=== PATIENT | female | born 1965 | race Caucasian/White ===

== ENCOUNTER 2018-10-11 12:50 | Inpatient (IN) | payer MEDICAID, OTHER ==
--- NOTE | 2018-10-11 13:00 | EDPHY ---
H & P Stated Complaint: manic biploar off meds Time Seen by Provider: 10/11/18 12:59 HPI/ROS: HPI: This is a 53-year-old female who presents with Chief Complaint: Manic, off medications Location: Psychiatric Quality: Marlin Duration: Several weeks Signs and Symptoms: no auditory hallucinations, no visual hallucinations, no suicidal ideation with a plan, no homicidal ideation, no paranoia Timing: Acute on chronic Severity: Severe Context: Patient presents accompanied by daughter and son with concerns of manic episode for the last several weeks. Patient has a history of bipolar disorder, noncompliant with Seroquel and carbamazepine. Daughter reports that she when out of town from September 27 to and during that time her mother started drinking alcohol and using marijuana which is a trigger for her. She reports that she has not been taking her medication regularly since that time. In December she moved from [place] to [place] to be closer to her son and daughter. She has had several inpatient psychiatric admission in [place]. Family reports that she is very delusional, manic. She is followed outpatient with psychiatry, [facility], bipolar disorder group. Modifying Factors: None Comment: ROS: A comprehensive 10 system review of systems is otherwise negative aside from elements mentioned in the history of present illness. MEDICAL/SURGICAL/SOCIAL HISTORY: Medical history: Bipolar disorder Surgical history: Denies Social history: Nontobacco user. Marijuana and alcohol use. Family history noncontributory. CONSTITUTIONAL: Very uncooperative, eccentric, shouting, angry, pacing around the room, awake and alert, no obvious distress HEENT: Atraumatic and normocephalic, PERRL, EOMI. Nares patent; no rhinorrhea; no nasal mucosal edema. Tympanic membranes clear. Oropharynx clear, no exudate and moist pink mucosa. Airway patent. No lymphadenopathy. No meningismus. Cardiovascular: Normal S1/S2, regular rate, regular rhythm, without murmur rub or gallop. PULMONARY/CHEST: Symmetrical and nontender. Clear to auscultation bilaterally. Good air movement. No accessory muscle usage. ABDOMEN: Soft, nondistended, nontender, no rebound, no guarding, no peritoneal signs, no masses or organomegaly. No CVAT. EXTREMITIES: 2/2 pulses, strength 5/5, no deformities, no clubbing, no cyanosis or edema. NEUROLOGICAL: no focal neuro deficits. GCS 15. Speech pattern is pressured, over talkative and rambling. SKIN: Warm and dry, no erythema. no rash. Good capillary refill. PSYCH: Poor eye contact, +flight of ideas, tangential disorganized thought process, poor insight and judgment, no auditory hallucinations, no visual hallucinations, no suicidal ideation with a plan, no homicidal ideation, no paranoia Source: Patient, Family (Daughter and son) Exam Limitations: Clinical condition - Medical/Surgical History Hx Asthma: No Hx Chronic Respiratory Disease: No Hx Diabetes: No Hx Cardiac Disease: No Hx Renal Disease: No Hx Cirrhosis: No Hx Alcoholism: No Hx HIV/AIDS: No Hx Splenectomy or Spleen Trauma: No Other PMH: bipolar - Social History Smoking Status: Never smoked Constitutional: Initial Vital Signs Temperature (C) 36.7 C 10/11/18 12:51 Heart Rate 88 10/11/18 12:51 Respiratory Rate 18 10/11/18 12:51 Blood Pressure 127/90 H 10/11/18 12:51 O2 Sat (%) 97 10/11/18 12:51 O2 Delivery Mode Room Air Allergies/Adverse Reactions: No Known Allergies Allergy (Unverified 10/11/18 14:52) Home Medications: Medication Instructions Recorded Carbamazepine 1 tab PO BID 10/11/18 Seroquel 100 mg (*) 1 tab PO HS 10/11/18 Medical Decision Making ED Course/Re-evaluation: Vital signs reviewed and stable upon arrival. Placed on M1 hold for severe marlin in bipolar disorder with noncompliance of medications. Labs and urine drug screen ordered. IM Zyprexa 10 mg given 1340: Labs reviewed and grossly unremarkable. Urine drug screen positive for marijuana. Medically clear for mental health evaluation. 1459: Notified by RN that patient is still quite manic. TLC evaluation is now complete. IM 2 mg given. 1506: TLC recommends inpatient psychiatric admission at [address] [place] [address] Villeda. EMTALA form completed. This patient was seen under the supervision of my secondary supervising physician. I evaluated care for this patient with attending. Differential Diagnosis: Differential diagnosis includes but is not limited to major depression, anxiety disorder, schizophrenia, bipolar disorder, intoxicant use, suicidal ideation, psychosis, marlin. - Data Points Laboratory Results: Laboratory Results 10/11/18 13:10 10/11/18 13:10 10/11/18 10/11/18 10/11/18 13:25 13:10 13:10 WBC 10.42 10^3/uL H 10^3/uL (3.80-9.50) RBC 4.53 10^6/uL 10^6/uL (4.18-5.33) Hgb 14.1 g/dL g/dL (12.6-16.3) Hct 43.2 % % (38.0-47.0) MCV 95.4 fL fL (81.5-99.8) MCH 31.1 pg pg (27.9-34.1) MCHC 32.6 g/dL g/dL (32.4-36.7) RDW 13.8 % % (11.5-15.2) Plt Count 362 10^3/uL 10^3/uL (150-400) MPV 11.6 fL fL (8.7-11.7) Neut % (Auto) 63.7 % % (39.3-74.2) Lymph % (Auto) 26.3 % % (15.0-45.0) [place] % (Auto) 7.0 % % (4.5-13.0) Eos % (Auto) 1.9 % % (0.6-7.6) Baso % (Auto) 0.8 % % (0.3-1.7) Nucleat RBC Rel Count 0.0 % % (0.0-0.2) Absolute Neuts (auto) 6.64 10^3/uL H 10^3/uL (1.70-6.50) Absolute Lymphs (auto) 2.74 10^3/uL 10^3/uL (1.00-3.00) Absolute Monos (auto) 0.73 10^3/uL 10^3/uL (0.30-0.80) Absolute Eos (auto) 0.20 10^3/uL 10^3/uL (0.03-0.40) Absolute Basos (auto) 0.08 10^3/uL 10^3/uL (0.02-0.10) Absolute Nucleated RBC 0.00 10^3/uL 10^3/uL (0-0.01) Immature Gran % 0.3 % % (0.0-1.1) Immature Gran # 0.03 10^3/uL 10^3/uL (0.00-0.10) Sodium 137 mEq/L mEq/L (135-145) Potassium 4.0 mEq/L mEq/L (3.5-5.2) Chloride 100 mEq/L mEq/L (97-110) Carbon Dioxide 27 mEq/l mEq/l (22-31) Anion Gap 10 mEq/L mEq/L (6-14) BUN 13 mg/dL mg/dL (7-23) Creatinine 0.7 mg/dL mg/dL (0.6-1.0) Estimated GFR > 60 Glucose 102 mg/dL H mg/dL (70-100) Calcium 9.8 mg/dL mg/dL (8.5-10.4) Urine Opiates Screen NEGATIVE (NEGATIVE) Urine Barbiturates NEGATIVE (NEGATIVE) Ur Phencyclidine Scrn NEGATIVE (NEGATIVE) Ur Amphetamine Screen NEGATIVE (NEGATIVE) U Benzodiazepines Scrn NEGATIVE (NEGATIVE) Urine Cocaine Screen NEGATIVE (NEGATIVE) U Marijuana (THC) Screen NON-NEGATIVE H (NEGATIVE) Ethyl Alcohol < 10 mg/dL mg/dL (0-10) Medications Given: Discontinued Medications Olanzapine (Zyprexa Injection) 10 mg IM EDNOW ONE Stop: 10/11/18 13:08 Last Admin: 10/11/18 13:20 Dose: 10 mg Departure - Departure Disposition: [facility] IP Clinical Impression: Bipolar disorder with severe marlin, Noncompliance with medication regimen, Marijuana use Condition: Fair
[2018-10-11] MEDS ORDERED: OLANZapine 10 MG/2 ML VIAL IM ONE (13:07)
[2018-10-11 13:22] LABS: PLATELET COUNT 362 10^3/uL (150-400)
[2018-10-11] MEDS ORDERED: LORazepam 2 MG/ML INJ IM ONE (14:59)
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
--- NOTE | 2018-10-11 15:50 | ASMTTCLDSP ---
TLC Discharge Disposition Disposition: Answers: Admit Discharge Concerns/Recommendations: Notes: In consultation with [facility] ED physician, DIANA Monroy and [facility] on-call psychiatrist, Jose Villeda MD, both concurred that pt appears to meet 27-65 criteria requiring psychiatric hospitalization as the patient appears to be an imminent risk of harm to gravely disabled due to a mental illness condition. The patient was read the Patient Rights and Responsibilities Statement (placed on chart). The patient was given the 3[facility] prohibited belongings list while in the ED. Was patient given the Answers: Yes Inpatient Behavioral Health Prohibited Belongings List while in the ED? For inpatient Jose Villeda MD admission, the following psychiatrist agreed to accept patient for admission to Behavioral Health ([facility]): Type of Hold: Answers: M1/72-hour Hold Hold initiated by: Answers: ED Physician Date Signed: 10/11/2018 03:50 PM Electronically Signed By:Karely Mark
--- NOTE | 2018-10-11 16:02 | PDCONSULT ---
Air Operations Manager Note: Chief complaint patient is here for psychiatric evaluation medicine has been consulted for medical clearance HPI- Elena Saxena is a 53-year-old female who states she has no past medical history. She says that today her children told her they were taking her to the [employer] to get make over and ended up taking her here to the hospital. She denies any physical complaints and is rather upset that she is being held here against her will. Other than that she denies any cough, fever, chills, chest pain, shortness of breath, diarrhea, dysuria or really any other symptoms. Past medical history None Surgical history She states that she had a brain tumor that she had surgery for She also states that she had open-heart surgery for a hole in her heart which he was child Social She says she smoked a marijuana joint yesterday Otherwise she still denies any illicit drugs or alcohol use No tobacco use Family history She denied any pertinent family history Medications She says she takes sleeping pill of some type but could not remember the name Allergies No known drug allergies Vital signs Blood pressure 127/90, heart rate 88, respirations 18, saturating 97% on room air, temperature 36.7 degrees C Examination General- anxious appearing female but in no acute distress HEENT- PE RR L a, atraumatic normocephalic, mucous membranes moist pink and acyanotic Lungs- clear to auscultation bilaterally Cardiovascular- regular rhythm and rate no murmurs rubs gallops normal S1-S2 Abdomen- soft nontender nondistended in all 4 quadrants with no organomegaly no guarding or rebound Extremities- no clubbing cyanosis edema or calf pain Neuro- no focal neurologic deficits, cranial nerves 2-12 grossly intact Psych- appears anxious with pressured speech Skin- no lesions rashes or ecchymosis Assessment plan 53-year-old female here with likely bipolar episode Marlin- per psychiatric management. Otherwise the patient is cleared from a medical standpoint and has no medical issues that would preclude transfer to Behavioral Health
--- NOTE | 2018-10-11 16:16 | ASMTLCPROG ---
Notes Note: Notes: Name: Elena Saxena : 1965 Med Record: [id number] ; [id number] Status: Involuntary M1 Hold Admitting Psychiatrist: Jose Villeda MD Insurance: Medicaid Dx: Unspecified Bipolar and Related Disorder 296.80 (F31.9) Medicaid Auth: [id number] Review On October 11October 13 Call [phone] Reviewer: Ask for first Avaiable Date Signed: 10/11/2018 04:15 PM Electronically Signed By:Brain Medeiros
[2018-10-11] MEDS ORDERED: OLANZapine DISINTEGR 10 MG TAB PO PRN (17:33)
[2018-10-11] MEDS ORDERED: MAG HYDROX/AL HYDROX/SIMETH 30 ML UDCUP PO PRN (17:33)
[2018-10-11] MEDS ORDERED: NICOTINE POLACRILEX 2 MG GUM B PRN (17:33)
[2018-10-11] MEDS ORDERED: MAGNESIUM HYDROXIDE 30 ML UDCUP PO PRN (17:33)
[2018-10-11] MEDS ORDERED: ACETAMINOPHEN 325 MG TAB PO PRN (17:33)
[2018-10-11] MEDS ORDERED: QUEtiapine FUMARATE 100 MG TAB PO SCH (21:00)
--- NOTE | 2018-10-12 09:35 | PDMN ---
Medical Necessity Medical necessity: Pt meets IP criteria as of 10/11/2018 per and [facility] B-004-IP (Bipolar disorders, adult, IP care); los > 2 mn for ongoing tx and management of unspecified bipolar and related disorder, pt presents on an M1 hold for severe samira in bipolar disorder causing grave disability; requiring crisis stabilization, medication management and safety.
[2018-10-12] MEDS ORDERED: QUEtiapine FUMARATE 100 MG TAB PO SCH (16:05)
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
--- NOTE | 2018-10-12 17:08 | BAPA ---
[f rep st] ADMISSION PSYCHIATRIC ASSESSMENT DATE OF SERVICE: 10/12/2018 CHIEF COMPLAINT: "My kids think I am mental. I was packing, I was watching the [employer] game. I'm moving in 2 months. They told me they were taking me to the hairdresser's. I am not bipolar. They can't keep me here." HISTORY OF PRESENT ILLNESS: The patient is a 53-year-old single, employed female with a history of bipolar disorder. She lives in an apartment in [place]. She arrived with her 2 adult children who told her that they were going to take her "to the [facility]." The patient was placed on an M1 hold by the [facility] ED. The MD in the ED wrote on the M1 hold "patient is delusional, erratic, manic for several weeks, history of bipolar disorder, noncompliance with medications, patient is gravely disabled." According to the patient's family, her daughters are concerned that the patient has been having a manic episode for the last several weeks. She moved from [place] to [place] in December of 2017 to be closer to her children. She stopped taking her medications, Seroquel and Tegretol in July of 2018 because she "is not bipolar." The patient has received outpatient treatment at [facility] and at [facility], but has not gone in the last several months. She cannot remember the names of her providers. Initially, in the emergency department, the patient was uncooperative, eccentric, shouting, labile, pacing. She was given Zyprexa 10 mg x2. The patient's children stated that she has packed all of her belongings by the front door and believe she is moving into the [employer] while he "visits [facility] with his family for 1 month." When MD met with the patient on the inpatient Behavioral Health Services Unit, she was very loose, tangential, disorganized. She had pressured speech, racing thoughts. She was difficult to interrupt. She would not let the MD get a word in edgewise, she would not wait for the MD to finish his sentences before interrupting him and picking up on a tangential topic and talking very rapidly. The patient insisted that the hospital had "no legal right" to keep her here against her will. She insisted that she was "not a voluntary patient." No matter how many times MD explained what an involuntary hold was, she did not understand the concept. Patient insisted that her daughters "have tricked me," and that she should be released from the hospital because of what her daughters did. PAST PSYCHIATRIC HISTORY: Most of the information about the patient's history was obtained from her 2 adult children, Mague and Osman, who are with the patient in the emergency department. Her children reported the patient had a manic episode in 2014 in [place] and that she was diagnosed at that time. She had no prior mental illness. She had never received a psychiatric diagnosis prior to the age of 50. She had never been on medications. She had never seen a psychiatrist or mental health provider prior to 2014. She has been hospitalized on 5 different occasions in the [facility], all since 2014. She denies any prior suicide attempts. Her most recent psychiatric hospitalization was in 2016. Since moving to [place] in December of 2017, the patient has been treated at [facility] and at the [facility], although she cannot remember the name of any of her providers. Most recently, she was prescribed Seroquel 100 mg p.o. at bedtime and Tegretol 200 mg p.o. twice daily, but her children report that the patient stopped taking all of her psychiatric medications in July of 2018. ALLERGIES: The patient has no known drug allergies. CURRENT MEDICATIONS: Tegretol 200 mg p.o. twice daily, Seroquel 100 mg p.o. at bedtime. The patient not currently taking either medication. LABORATORY DATA: White cell count 10.42, hemoglobin 14.1, hematocrit 43.2, platelet count 362. Sodium 137, potassium 4.0, chloride 100, BUN 13, creatinine 0.7, glucose 102, calcium 9.8. Urine tox screen was positive for marijuana. Negative for all other drugs of abuse. PAST MEDICAL HISTORY: The patient claims that she had a brain tumor and says that she had surgery to remove the brain tumor, which she said was "the size of a tangerine." Patient also says that she has had open heart surgery to close a hole in her heart when she was a child. No other current medical issues. No chronic medical conditions. SOCIAL HISTORY: The patient grew up in the [facility]. She attended high school and has an associate degree in [employer]. 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 She moved to [place] in December of 2017 to be near her 2 adult children, Mague and Osman, who both live in [place]. The patient talks a lot about the [employer], that she is an avid hockey fan. FAMILY HISTORY: The patient denied any family history of mental illness or substance use. SUBSTANCE USE HISTORY: The patient states "I do not have bipolar. I have a drinking problem." The patient says that she has a history of binge drinking. She told the [facility] manager study that she drank a half a gallon of alcohol 2 weeks ago. She said that she started drinking alcohol when she was 16 years old. It is unclear how reliable of a historian the patient is. We have no confirmation from her family. She does admit to using marijuana, but says that the first time she used in the last 2 weeks was the day prior to admission. She denies use of any other illicit or recreational substances. LEGAL HISTORY: Patient denies any current legal issues. MENTAL STATUS EXAMINATION: This is a tall, very thin woman, slightly disheveled , wearing glasses, a Bruins T-shirt and sweat pants, sitting in a chair, although she is extremely restless and fidgety. Gets up several times to collect her belongings, get water. At 1 point, she walked down to the nurse's station to talk to the director of healthcare systems, leaves the MD sitting at a table. She is oriented x3. She cannot remember the name of the hospital. Her affect is elevated. Her demeanor is erratic. She has difficulty sustaining eye contact. Her speech rate is rapid and volume is loud. Her intellectual function appears to be average based upon her vocabulary, fund of knowledge, and educational history. She denies feeling sad, helpless, hopeless, worthless, and anxious. She denies any symptoms of psychosis, including denying auditory and visual hallucinations, paranoid delusions, ideas of reference and bizarre thoughts. However, one of her presenting symptoms was a delusion that she was going to stay at the [employer] while he was in [facility] with his family for a month. She does have noticeable signs of samira, including increasing goal-directed activity, decreased need for sleep, racing thoughts, pressured speech, grandiose delusions, and elevated elated mood. She denies any thoughts, plans, or intents to hurt herself or anyone else. Her thought process is loose and tangential. Her insight and judgment are both impaired as evidenced by packing her household belongings to move into the president of [employer] house for a month. IMPRESSION: 1. Bipolar disorder, most recent episode manic. 2. Cannabis use disorder, unknown severity. 3. Lack of social support. Recently relocated to [place]. Noncompliance with medications, nonadherence to outpatient treatment. 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 PLAN: 1. Admit the patient to the inpatient Behavioral Health Services Unit on [address] on an M1 hold. 2. Monitor closely for safety. The patient is currently not exhibiting any signs of unsafe behavior. She is acting appropriately, although she remains restless, intrusive. She has not been inappropriate, aggressive or agitated with peers or staff. 3. Will continue to monitor and observe the patient. The patient has been offered olanzapine as well as Seroquel to treat her samira. The patient has refused olanzapine, but has agreed to take Seroquel at . She states that she uses that medication at home for sleep. This MD did not restart her on Tegretol. Given the fact that there are more effective first-line treatments for bipolar, MD would recommend using a more first-line agent for samira, either lithium and Depakote or another combination. Right now, the only medication the patient has voluntarily consented to take is her Seroquel. MD will increase the dose of Seroquel kamila to 100 mg. She took 50 mg last night with no side effects. She was pretty sedated after arriving on the unit after being given IM Zyprexa x2 in the ED. She slept for 12 hours last night, but has increased goal-directed activity, pressured speech and racing thoughts as well as intrusive behavior today. 4. Patient gives informed consent to increase her dose of Seroquel. She states that she is willing to take that medication at HS, but does not want to be on any other psychotropic medications. The patient does not believe that she has bipolar disorder. Thinks the diagnosis is wrong. She says "I am not mental." She blames her daughters for taking her to the ED under false pretenses and is quite angry about being in the hospital. 5. Estimated length of stay is 3-5 days. MD did spend quite a bit of time talking to the patient and explaining the 72 hour involuntary commitment. MD also explained to the patient that after her mental health hold expires, her treatment team will need to decide whether or not she is safe to be discharged, that they will use the criteria of danger to self, danger to others, or grave disability in order to determine whether or not to prolong her stay on a short- term commitment, of if the patient agrees or consents to stay voluntarily and receive treatment. /[id number]/MODL MTDD
[2018-10-12] MEDS: LORazepam 0.5 MG TAB PO PRN (20:11)
[2018-10-13] MEDS: LORazepam 0.5 MG TAB PO PRN (03:59)
--- NOTE | 2018-10-13 07:48 | SOAPPROG ---
SOAP Progress Note Assessment/Plan: Assessment: Bipolar I Disorder, Severe. Current Mralin. No improvement noted. (see subjective/objective note). Patient is not safe to discharge at this time as patient continues to exhibit signs of marlin, and express marlin symptoms. Patient requires continued inpatient care because of current mood instability, and requires inpatient level of care to stabilize in order to no longer be gravely disabled due to mental illness. Patient refusing medications over weekend. Due to current marlin, patient is unable to independently attend to ADLs and communicate her basic needs. Patient could benefit from continued inpatient hospitalization for crisis stabilization, safety, and medication evaluation. Plan: 1. Psychotropic medications: After reviewing options, risks, and benefits patient agrees to continue current medications with following changes increase Seroquel to 200 mg po QHS and begin Carbamazepine 200 mg po BID. No other medication changes at this time as more time is needed to determine ongoing tolerability and efficacy. Plan is to continue to observe patient for response and side effects from medications, and ongoing monitoring and evaluation. 2. Review with patient informed consent and recommendations for psychotropic medication treatment listed below 3. Labs: A1c, lipid panel, liver function, TSH 4. Therapy: continue milieu and group therapy 5. Further investigation including gathering information from patients relatives and review of past case records to inform treatment plan. 6. Safety/Wellness plan and follow-up outpatient appointments to be established prior to discharge. Next steps are for patient to meet with personal care service provider to plan a safe discharge plan and establish outpatient services for ongoing treatment. 7. Confer with inpatient treatment team regarding treatment plan. 8. Psychosocial stressors addressed through case management. 9. Legal status: M1 10. Consider discharge this week if patient is in stable condition, safe, and has a safe discharge plan. PSYCHOTROPIC MEDICATION TREATMENT INFORMED CONSENT and RECOMMENDATIONS: Review nature of condition, diagnosis, and prognosis. Review nature and purpose of psychotropic medication treatment. Review type of psychotropic medications being ordered. Review risk and benefits of psychotropic medication treatment. Review probable length of time patient will need to take medications. Review risk and benefits of not undergoing psychotropic medication treatment. Review alternative treatments to psychotropic medications. Review psychotropic medications contraindications, drug-drug interactions, side effects, and importance of reporting any side effects to a psychiatric provider or nurse during inpatient hospitalization, and upon discharge to patients psychiatric outpatient provider, primary care provider, or other health rn critical care. Review importance of asking a nurse, psychiatric provider, or primary care provider any questions or problems concerning the psychotropic medications. Verify patient understands the information that has been provided, and understands, accepts, and agrees to psychotropic medications. Review patients safety plan and importance of patient to report to staff while hospitalized if patient is ever a danger to self/others, or unable to care for self, and upon discharge, the importance for patient to contact [facility] or [facility], or go to the nearest emergency room, if patient is ever a danger to self/others, or unable to care for self. Recommend that upon discharge patient establish medication management treatment with a psychiatric provider, establishes routine therapy appointments, and follow-up with primary care provider. Verify patient understands and agrees to these recommendations. 10/13/18 07:51 Subjective: Following up with patient for evaluation of marlin and safety. Patient reports, "I am fine, doing just fine. Yes, doing just fine." Patient expresses the following psychiatric symptoms severely anxious. Patient reports taking medications as prescribed, and describes response to medications as okay. Patient does not report undesirable side effects from the medications, and agrees to continue current medications. Patient agrees to increase Seroquel to 200 mg po QHS, and begin Carbamazepine 200 mg po BID. Patient describes getting 8 hours of sleep. Objective: Vital Signs Temp Pulse Resp BP Pulse Ox 36.6 C 105 H 17 128/60 H 98 10/13/18 04:55 10/13/18 04:55 10/13/18 04:55 10/13/18 04:55 10/13/18 04:55 NURSING REPORT: Consulted with nursing for update on patients progress in treatment. Nurses report patient is engaged in treatment, is attending groups, slept 2 hours, expresses the following psychiatric symptoms: anxious, exhibits the following psychiatric symptoms: hypertalkative, pressured speech, hyperactive, intrusive; is eating all meals, is agreeable to medications and taking as prescribed with no report of side effects, with no s/s of EPS/ akathisia, and denies SI/HI, denies A/V hallucinations, and denies delusions. MD REPORT FROM WEEKEND: very manic 53 year old woman moved from [place] to [place] in 2017 and stopped taking medications 07/2018. She refuses all mood stabilizers b/ c "I am not mental." MSE: The patient is a well-nourished female looking stated chronological age. Attire is appropriate dress is casual. Grooming status is appropriate. Ambulation independent. Gait is normal and coordinated. Posture is normal. Eye contact is appropriate. Motor activity is appropriate with purposeful, organized, coordinated movements; with no involuntary movements. Attitude is cooperative. Patient appears distracted and does not relate well to this interviewer. Language production is spontaneous. Rate is pressured, latency of response is shortened, with appropriate volume, and anxious tone. Articulation is clear. Patient reports mood as okay with anxious affect. Patients thought process is tangential. Patient does not report suicidal/ homicidal thoughts, ideas, or plans. Patient denies auditory, visual hallucinations. Patient denies delusions. Patient does not appear to be attending to internal stimuli. Patients attention and concentration are poor. Patient is oriented to person, place, time. Patients insight is poor. Patients judgment is poor. - Time Spent With Patient Time Spent With Patient: 15 minutes, met with patient individually. - Pending Discharge Pending Discharge Within 24 Hours: No Pending Discharge Within 48 Hours: No ICD10 Worksheet Patient Problems: Problems Problem Status Onset Bipolar disorder with severe marlin Acute Marijuana use Acute Noncompliance with medication regimen Acute
[2018-10-13] MEDS: carBAMazepine 200 MG TAB PO SCH ×2 (09:11→20:04)
--- NOTE | 2018-10-13 12:52 | ASMTCMCOM ---
CM Note CM Note Notes: CC spoke to daughter who was able to take down all necessary information for staff regarding the new building including, location, phone number, etc. Daughter thanked this brief writer for providing this information.* Date Signed: 10/13/2018 12:49 PM Electronically Signed By:Deepak Santo
[2018-10-13] MEDS: QUEtiapine FUMARATE 100 MG TAB PO SCH (20:03)
--- NOTE | 2018-10-14 06:28 | SOAPPROG ---
SOAP Progress Note Assessment/Plan: Assessment: Bipolar I Disorder, Severe. Current Marlin. Slight improvement noted; notably improved sleep (see subjective/objective note). Patient is not safe to discharge at this time as patient continues to exhibit signs of marlin, and express marlin symptoms. Patient requires continued inpatient care because of current mood instability, and requires inpatient level of care to stabilize in order to no longer be gravely disabled due to mental illness. Patient refusing medications over weekend. Due to current marlin, patient is unable to independently attend to ADLs and communicate her basic needs. Patient could benefit from continued inpatient hospitalization for crisis stabilization, safety, and medication evaluation. Plan: 1. Psychotropic medications: After reviewing options, risks, and benefits patient agrees to continue current medications. No medication changes at this time as more time is needed to determine ongoing tolerability and efficacy. Plan is to continue to observe patient for response and side effects from medications, and ongoing monitoring and evaluation. 2. Review with patient informed consent and recommendations for psychotropic medication treatment listed below 3. Labs: no additional labs at this time 4. Therapy: continue milieu and group therapy 5. Further investigation including gathering information from patients relatives and review of past case records to inform treatment plan. 6. Safety/Wellness plan and follow-up outpatient appointments to be established prior to discharge. Next steps are for patient to meet with senior care assistant to plan a safe discharge plan and establish outpatient services for ongoing treatment. 7. Confer with inpatient treatment team regarding treatment plan. 8. Psychosocial stressors addressed through case management. 9. Legal status: M1 10. Consider discharge this week if patient is in stable condition, safe, and has a safe discharge plan. PSYCHOTROPIC MEDICATION TREATMENT INFORMED CONSENT and RECOMMENDATIONS: Review nature of condition, diagnosis, and prognosis. Review nature and purpose of psychotropic medication treatment. Review type of psychotropic medications being ordered. Review risk and benefits of psychotropic medication treatment. Review probable length of time patient will need to take medications. Review risk and benefits of not undergoing psychotropic medication treatment. Review alternative treatments to psychotropic medications. Review psychotropic medications contraindications, drug-drug interactions, side effects, and importance of reporting any side effects to a psychiatric provider or nurse during inpatient hospitalization, and upon discharge to patients psychiatric outpatient provider, primary care provider, or other health critical care registered nurse. Review importance of asking a nurse, psychiatric provider, or primary care provider any questions or problems concerning the psychotropic medications. Verify patient understands the information that has been provided, and understands, accepts, and agrees to psychotropic medications. Review patients safety plan and importance of patient to report to staff while hospitalized if patient is ever a danger to self/others, or unable to care for self, and upon discharge, the importance for patient to contact [facility] or [facility], or go to the nearest emergency room, if patient is ever a danger to self/others, or unable to care for self. Recommend that upon discharge patient establish medication management treatment with a psychiatric provider, establishes routine therapy appointments, and follow-up with primary care provider. Verify patient understands and agrees to these recommendations. 10/14/18 06:27 Subjective: Following up with patient for evaluation of marlin and safety. Patient reports, "I am doing good. Slept well, 9.5 hours." Patient expresses the following psychiatric symptoms moderate anxiety. Patient reports taking medications as prescribed, and describes response to medications as okay. Patient does not report undesirable side effects from the medications, and agrees to continue current medications. Objective: Vital Signs Temp Pulse Resp BP Pulse Ox 36.6 C 105 H 17 128/60 H 98 10/13/18 04:55 10/13/18 04:55 10/13/18 04:55 10/13/18 04:55 10/13/18 04:55 NURSING REPORT: Consulted with nursing for update on patients progress in treatment. Nurses report patient is engaged in treatment, is attending groups, slept 8.5 hours, expresses the following psychiatric symptoms: anxious, exhibits the following psychiatric symptoms: hypertalkative, pressured speech, hyperactive, intrusive; is eating all meals, is agreeable to medications and taking as prescribed with no report of side effects, with no s/s of EPS/ akathisia, and denies SI/HI, denies A/V hallucinations, and denies delusions. MD REPORT FROM WEEKEND: very manic 53 year old [place] and stopped taking medications 07/2018. She refuses all mood stabilizers b/ c I am not mental. MSE: The patient is a well-nourished female looking stated chronological age. Attire is appropriate dress is casual. Grooming status is appropriate. Ambulation independent. Gait is normal and coordinated. Posture is normal. Eye contact is appropriate. Motor activity is appropriate with purposeful, organized, coordinated movements; with no involuntary movements. Attitude is cooperative. Patient appears distracted and does not relate well to this interviewer. Language production is spontaneous. Rate is pressured, latency of response is shortened, with appropriate volume, and anxious tone. Articulation is clear. Patient reports mood as okay with anxious affect. Patients thought process is tangential. Patient does not report suicidal/ homicidal thoughts, ideas, or plans. Patient denies auditory, visual hallucinations. Patient denies delusions. Patient does not appear to be attending to internal stimuli. Patients attention and concentration are poor. Patient is oriented to person, place, time. Patients insight is poor. Patients judgment is poor. - Time Spent With Patient Time Spent With Patient: 15 minutes, met with patient individually. - Pending Discharge Pending Discharge Within 24 Hours: No Pending Discharge Within 48 Hours: No ICD10 Worksheet Patient Problems: Problems Problem Status Onset Bipolar disorder with severe marlin Acute Marijuana use Acute Noncompliance with medication regimen Acute
[2018-10-14] MEDS: carBAMazepine 200 MG TAB PO SCH ×2 (07:44→19:53)
--- NOTE | 2018-10-14 13:46 | ASMTCMCOM ---
CM Note CM Note Notes: Pt. reports she is "doing great". Pt. stated she got "9 hours" of sleep last night. Pt. stated she has no issues with her current medications, adding she does feel "damp" every night. Pt. stated she is getting "plenty of food" and is attending groups. Pt. denied SI, HI, AVH and paranoia. Pt. stated she wants CC to "get me out of here". Pt. stated her daughter controls the pt's money. Pt. stated she is upset with her daughter, because DOC only give pt. $100 for food each month. Pt. stated she has "lost 35lbs". Pt. stated while her daughter was away last week, the pt. took all of the food in the freezer and drank a bottle of vodka. Pt. presents as elevated, speaking loudly, states she can't hear well, close proximity, demanding to leave, and somewhat cooperative. Staff report pt. sleeping 8.5 hours and being medication compliant. Pt. attended the treatment team planning meeting this morning and refused to sign her treatment plan. Per provider, pt. needs labs drawn before discharge, Labs are scheduled for morning. Pt. has a follow up appointment on 10/20/18 @ 3:45pm with [facility] at the [facility]. Date Signed: 10/14/2018 01:41 PM Electronically Signed By:Paula Skelton
--- NOTE | 2018-10-14 14:10 | ASMTCMCOM ---
CM Note CM Note Notes: CC spoke with pt's daughter about the move to [facility] being rescheduled for 10/21/18 Date Signed: 10/14/2018 02:09 PM Electronically Signed By:Paula Skelton
[2018-10-14] MEDS: QUEtiapine FUMARATE 100 MG TAB PO SCH (19:53)
[2018-10-15] MEDS ORDERED: QUEtiapine FUMARATE 50 MG TAB PO PRN (06:03)
--- NOTE | 2018-10-15 06:03 | SOAPPROG ---
SOAP Progress Note Assessment/Plan: Assessment: Bipolar I Disorder, Severe. Current Marlin. No improvement noted; patient did not sleep last night; continues to present with marlin s/s (see subjective/ objective note). Patient is not safe to discharge at this time as patient continues to exhibit signs of marlin, and express marlin symptoms. Patient requires continued inpatient care because of current mood instability, and requires inpatient level of care to stabilize in order to no longer be gravely disabled due to mental illness. Patient refusing medications over weekend. Due to current marlin, patient is unable to independently attend to ADLs and communicate her basic needs. Patient placed on [facility] yesterday due to being gravely disabled d/t mental illness. Patient could benefit from continued inpatient hospitalization for crisis stabilization, safety, and medication evaluation. Plan: 1. Psychotropic medications: After reviewing options, risks, and benefits patient agrees to continue current medications, and agrees to increase Seroquel to 300 mg po QHS. Begin Seroquel 50 mg po Q6HRS PRN for agitation. No other medication changes at this time as more time is needed to determine ongoing tolerability and efficacy. Plan is to continue to observe patient for response and side effects from medications, and ongoing monitoring and evaluation. 2. Review with patient informed consent and recommendations for psychotropic medication treatment listed below 3. Labs: Tegretol level AM 4. Therapy: continue milieu and group therapy 5. Further investigation including gathering information from patients relatives and review of past case records to inform treatment plan. 6. Safety/Wellness plan and follow-up outpatient appointments to be established prior to discharge. Next steps are for patient to meet with senior care assistant to plan a safe discharge plan and establish outpatient services for ongoing treatment. 7. Confer with inpatient treatment team regarding treatment plan. 8. Psychosocial stressors addressed through case management. 9. Legal status: [facility] 10. Consider discharge this week if patient is in stable condition, safe, and has a safe discharge plan. PSYCHOTROPIC MEDICATION TREATMENT INFORMED CONSENT and RECOMMENDATIONS: Review nature of condition, diagnosis, and prognosis. Review nature and purpose of psychotropic medication treatment. Review type of psychotropic medications being ordered. Review risk and benefits of psychotropic medication treatment. Review probable length of time patient will need to take medications. Review risk and benefits of not undergoing psychotropic medication treatment. Review alternative treatments to psychotropic medications. Review psychotropic medications contraindications, drug-drug interactions, side effects, and importance of reporting any side effects to a psychiatric provider or nurse during inpatient hospitalization, and upon discharge to patients psychiatric outpatient provider, primary care provider, or other health home visit field care manager. Review importance of asking a nurse, psychiatric provider, or primary care provider any questions or problems concerning the psychotropic medications. Verify patient understands the information that has been provided, and understands, accepts, and agrees to psychotropic medications. Review patients safety plan and importance of patient to report to staff while hospitalized if patient is ever a danger to self/others, or unable to care for self, and upon discharge, the importance for patient to contact [facility] or [facility], or go to the nearest emergency room, if patient is ever a danger to self/others, or unable to care for self. Recommend that upon discharge patient establish medication management treatment with a psychiatric provider, establishes routine therapy appointments, and follow-up with primary care provider. Verify patient understands and agrees to these recommendations. 10/15/18 06:02 Subjective: Following up with patient for evaluation of marlin and safety. Patient reports, "I am not doing good. Did not sleep last night. Up all night, took 3 showers. " Patient expresses the following psychiatric symptoms severe anxiety. Patient reports taking medications as prescribed, and describes response to medications as okay. Patient does not report undesirable side effects from the medications, and agrees to continue current medications. Patient agrees to increase Seroquel to 300 mg po QHS. Objective: Vital Signs Temp Pulse Resp BP Pulse Ox 36.3 C 92 16 130/76 H 96 10/14/18 06:00 10/14/18 06:00 10/14/18 06:00 10/14/18 06:00 10/14/18 06:00 NURSING REPORT: Consulted with nursing for update on patients progress in treatment. Nurses report patient is engaged in treatment, is attending groups, slept 0 hours, expresses the following psychiatric symptoms: anxious, exhibits the following psychiatric symptoms: hypertalkative, pressured speech, hyperactive, intrusive; is eating all meals, is agreeable to medications and taking as prescribed with no report of side effects, with no s/s of EPS/ akathisia, and denies SI/HI, denies A/V hallucinations, and denies delusions. MD REPORT FROM WEEKEND: very manic 53 year old woman moved from [place] to [place] in 2017 and stopped taking medications 07/2018. She refuses all mood stabilizers b/ c I am not mental. MSE: The patient is a well-nourished female looking stated chronological age. Attire is appropriate dress is casual. Grooming status is appropriate. Ambulation independent. Gait is normal and coordinated. Posture is normal. Eye contact is appropriate. Motor activity is appropriate with purposeful, organized, coordinated movements; with no involuntary movements. Attitude is cooperative. Patient appears distracted and does not relate well to this interviewer. Language production is spontaneous. Rate is pressured, latency of response is shortened, with appropriate volume, irritable and anxious tone. Articulation is clear. Patient reports mood as okay with anxious affect. Patients thought process is tangential. Patient does not report suicidal/ homicidal thoughts, ideas, or plans. Patient denies auditory, visual hallucinations. Patient denies delusions. Patient does not appear to be attending to internal stimuli. Patients attention and concentration are poor. Patient is oriented to person, place, time. Patients insight is poor. Patients judgment is poor. - Time Spent With Patient Time Spent With Patient: 15 minutes, met with patient individually. - Pending Discharge Pending Discharge Within 24 Hours: No Pending Discharge Within 48 Hours: No ICD10 Worksheet Patient Problems: Problems Problem Status Onset Bipolar disorder with severe marlin Acute Marijuana use Acute Noncompliance with medication regimen Acute
[2018-10-15] MEDS ORDERED: QUEtiapine FUMARATE 300 MG TAB PO SCH (06:04)
[2018-10-15] MEDS: carBAMazepine 200 MG TAB PO SCH ×2 (08:13→19:51)
--- NOTE | 2018-10-16 06:04 | SOAPPROG ---
SOAP Progress Note Assessment/Plan: Assessment: Bipolar I Disorder, Severe. Current Marlin. No improvement noted; patient only slept 2 hours last night; continues to present with marlin s/s (see subjective/ objective note). Tegretol level this AM; increase as indicated. Patient is not safe to discharge at this time as patient continues to exhibit signs of marlin, and express marlin symptoms. Patient requires continued inpatient care because of current mood instability, and requires inpatient level of care to stabilize in order to no longer be gravely disabled due to mental illness. Patient refusing medications over weekend. Due to current marlin, patient is unable to independently attend to ADLs and communicate her basic needs. Patient placed on [facility] Saturday due to being gravely disabled d/t mental illness. Patient could benefit from continued inpatient hospitalization for crisis stabilization, safety, and medication evaluation. Plan: 1. Psychotropic medications: After reviewing options, risks, and benefits patient agrees to continue current medications, and agrees to increase Seroquel to 400 mg po QHS. No other medication changes at this time as more time is needed to determine ongoing tolerability and efficacy. Plan is to continue to observe patient for response and side effects from medications, and ongoing monitoring and evaluation. 2. Review with patient informed consent and recommendations for psychotropic medication treatment listed below 3. Labs: Tegretol level this AM 4. Therapy: continue milieu and group therapy 5. Further investigation including gathering information from patients relatives and review of past case records to inform treatment plan. 6. Safety/Wellness plan and follow-up outpatient appointments to be established prior to discharge. Next steps are for patient to meet with daytime caregiver to plan a safe discharge plan and establish outpatient services for ongoing treatment. 7. Confer with inpatient treatment team regarding treatment plan. 8. Psychosocial stressors addressed through case management. 9. Legal status: [facility] 10. Consider discharge this week if patient is in stable condition, safe, and has a safe discharge plan. PSYCHOTROPIC MEDICATION TREATMENT INFORMED CONSENT and RECOMMENDATIONS: Review nature of condition, diagnosis, and prognosis. Review nature and purpose of psychotropic medication treatment. Review type of psychotropic medications being ordered. Review risk and benefits of psychotropic medication treatment. Review probable length of time patient will need to take medications. Review risk and benefits of not undergoing psychotropic medication treatment. Review alternative treatments to psychotropic medications. Review psychotropic medications contraindications, drug-drug interactions, side effects, and importance of reporting any side effects to a psychiatric provider or nurse during inpatient hospitalization, and upon discharge to patients psychiatric outpatient provider, primary care provider, or other health respiratory care instructor. Review importance of asking a nurse, psychiatric provider, or primary care provider any questions or problems concerning the psychotropic medications. Verify patient understands the information that has been provided, and understands, accepts, and agrees to psychotropic medications. Review patients safety plan and importance of patient to report to staff while hospitalized if patient is ever a danger to self/others, or unable to care for self, and upon discharge, the importance for patient to contact [facility] or [facility], or go to the nearest emergency room, if patient is ever a danger to self/others, or unable to care for self. Recommend that upon discharge patient establish medication management treatment with a psychiatric provider, establishes routine therapy appointments, and follow-up with primary care provider. Verify patient understands and agrees to these recommendations. 10/16/18 06:03 Subjective: Following up with patient for evaluation of marlin and safety. Patient reports, "I slept 9 hours last night, and feel great. I am doing just fine. My daughter visited last night. We argued." Patient expresses the following psychiatric symptoms severe anxiety. Patient reports taking medications as prescribed, and describes response to medications as poor. Patient does not report undesirable side effects from the medications, and agrees to continue current medications. Patient agrees to increase Seroquel to 400 mg po QHS. Objective: Vital Signs Temp Pulse Resp BP Pulse Ox 36.6 C 92 15 161/65 H 93 10/15/18 06:00 10/15/18 06:00 10/15/18 06:00 10/15/18 06:00 10/15/18 06:00 NURSING REPORT: Consulted with nursing for update on patients progress in treatment. Nurses report patient is engaged in treatment, is attending groups, slept 2 hours, expresses the following psychiatric symptoms: anxious, exhibits the following psychiatric symptoms: hypertalkative, pressured speech, hyperactive, intrusive; is eating all meals, is agreeable to medications and taking as prescribed with no report of side effects, with no s/s of EPS/ akathisia, and denies SI/HI, denies A/V hallucinations, and denies delusions. MSE: The patient is a well-nourished female looking stated chronological age. Attire is appropriate dress is casual. Grooming status is appropriate. Ambulation independent. Gait is normal and coordinated. Posture is normal. Eye contact is appropriate. Motor activity is appropriate with purposeful, organized, coordinated movements; with no involuntary movements. Attitude is cooperative. Patient appears distracted and does not relate well to this interviewer. Language production is spontaneous. Rate is pressured, latency of response is shortened, with appropriate volume, irritable and anxious tone. Articulation is clear. Patient reports mood as okay with anxious affect. Patients thought process is tangential. Patient does not report suicidal/ homicidal thoughts, ideas, or plans. Patient denies auditory, visual hallucinations. Patient denies delusions. Patient does not appear to be attending to internal stimuli. Patients attention and concentration are poor. Patient is oriented to person, place, time. Patients insight is poor. Patients judgment is poor. - Time Spent With Patient Time Spent With Patient: 15 minutes, met with patient individually. - Pending Discharge Pending Discharge Within 24 Hours: No Pending Discharge Within 48 Hours: No ICD10 Worksheet Patient Problems: Problems Problem Status Onset Bipolar disorder with severe marlin Acute Marijuana use Acute Noncompliance with medication regimen Acute
[2018-10-16] MEDS: carBAMazepine 200 MG TAB PO SCH ×2 (08:22→20:23)
[2018-10-16] MEDS: QUEtiapine FUMARATE 200 MG TAB PO SCH (20:23)
--- NOTE | 2018-10-17 06:02 | SOAPPROG ---
SOAP Progress Note Assessment/Plan: Assessment: Bipolar I Disorder, Severe. Current Marlin, Cannabis Use Disorder, Severe. Alcohol Use Disorder, Severe. No improvement noted (see subjective/objective note). Patient is not safe to discharge at this time as patient continues to exhibit signs (decreased need for sleep, irritable, agitated, grandiose, pressured speech, hypertalkative, hyperactive, tangential) of marlin, and express marlin symptoms (severe anxiety, racing thoughts). Poor insight and judgement. Patient requires continued inpatient care because of current mood instability, and requires inpatient level of care to stabilize in order to no longer be gravely disabled due to mental illness. Due to current marlin, patient is unable to independently and appropriately attend to ADLs and communicate her basic needs appropriately. Patient exhibits persistent inability to perform essential function due to psychotic condition. Patients support system has inability to manage functional impairment at lower level of care. Patient lives alone and family is concerned for her safety if released from the hospital at this time. Patient could benefit from continued inpatient hospitalization for crisis stabilization, safety, medication evaluation, and discharge planning. Plan: 1. Psychotropic medications: After reviewing options, risks, and benefits patient agrees to continue current medications. No medication changes at this time as more time is needed to determine ongoing tolerability and efficacy. Plan is to continue to observe patient for response and side effects from medications, and ongoing monitoring and evaluation. 2. Review with patient informed consent and recommendations for psychotropic medication treatment listed below 3. Labs: no additional labs at this time; Tegretol yesterday 6.40 4. Therapy: continue milieu and group therapy 5. Further investigation including gathering information from patients relatives and review of past case records to inform treatment plan. 6. Safety/Wellness plan and follow-up outpatient appointments to be established prior to discharge. Next steps are for patient to meet with physician assistant primary care to plan a safe discharge plan and establish outpatient services for ongoing treatment. 7. Confer with inpatient treatment team regarding treatment plan. 8. Psychosocial stressors addressed through case management. 9. Legal status: [facility] 10. Consider discharge next week if patient is in stable condition, safe, and has a safe discharge plan. PSYCHOTROPIC MEDICATION TREATMENT INFORMED CONSENT and RECOMMENDATIONS: Review nature of condition, diagnosis, and prognosis. Review nature and purpose of psychotropic medication treatment. Review type of psychotropic medications being ordered. Review risk and benefits of psychotropic medication treatment. Review probable length of time patient will need to take medications. Review risk and benefits of not undergoing psychotropic medication treatment. Review alternative treatments to psychotropic medications. Review psychotropic medications contraindications, drug-drug interactions, side effects, and importance of reporting any side effects to a psychiatric provider or nurse during inpatient hospitalization, and upon discharge to patients psychiatric outpatient provider, primary care provider, or other health career counselor. Review importance of asking a nurse, psychiatric provider, or primary care provider any questions or problems concerning the psychotropic medications. Verify patient understands the information that has been provided, and understands, accepts, and agrees to psychotropic medications. Review patients safety plan and importance of patient to report to staff while hospitalized if patient is ever a danger to self/others, or unable to care for self, and upon discharge, the importance for patient to contact [facility] or [facility], or go to the nearest emergency room, if patient is ever a danger to self/others, or unable to care for self. Recommend that upon discharge patient establish medication management treatment with a psychiatric provider, establishes routine therapy appointments, and follow-up with primary care provider. Verify patient understands and agrees to these recommendations. 10/17/18 06:12 Subjective: Following up with patient for evaluation of marlin and safety. Patient reports, "I am fine. Taking my medications. I need to leave so I can get back to work. I want to leave. I need to be discharged today." Patient expresses the following psychiatric symptoms severe anxiety. Patient reports taking medications as prescribed, and describes response to medications as okay. Patient does not report undesirable side effects from the medications, and agrees to continue current medications. Objective: Vital Signs Temp Pulse Resp BP Pulse Ox 36.2 C 86 16 127/80 H 96 10/16/18 06:00 10/16/18 06:00 10/16/18 06:00 10/16/18 06:00 10/16/18 06:00 MSE: The patient is a well-nourished female looking stated chronological age. Attire is appropriate dress is casual. Grooming status is appropriate. Ambulation independent. Gait is normal and coordinated. Posture is normal. Eye contact is inappropriate and staring. Motor activity is appropriate with purposeful, organized, coordinated movements; with no involuntary movements. Attitude is uncooperative. Patient appears distracted and does not relate well to this interviewer. Language production is spontaneous. Rate is pressured, latency of response is shortened, with appropriate volume, irritable and anxious tone. Articulation is clear. Patient reports mood as just fine with anxious affect. Patients thought process is tangential, non-linear, and illogical. Patient presents grandiose. Patient does not report suicidal/ homicidal thoughts, ideas, or plans. Patient denies auditory, visual hallucinations. Patient denies delusions. Patient does not appear to be attending to internal stimuli. Patients attention and concentration are poor. Patient is oriented to person, place, time. Patients insight is poor. Patients judgment is poor. REPORT FROM PATIENTS DAUGHTER: This GREY PERCHER spoke to patients daughter yesterday afternoon at 1644 to provide treatment update and obtain additional information from daughter, and her impression on how her mother is doing. She reports her mother is still not well, when visiting her on the unit she is irritable, argumentative, grandiose, and tangential. She is also concerned her mothers insight and judgement is currently poor. She thanked this GREY PERCHER for the update and for the treatment the hospital is providing for her mother. [place] LEVEL 10/16/18: 6.40 - Time Spent With Patient Time Spent With Patient: 15 minutes, met with patient individually. - Pending Discharge Pending Discharge Within 24 Hours: No Pending Discharge Within 48 Hours: No ICD10 Worksheet Patient Problems: Problems Problem Status Onset Alcohol use disorder, severe, dependence Acute Bipolar disorder with severe marlin Acute Cannabis use disorder, severe, dependence Acute Marijuana use Acute Noncompliance with medication regimen Acute
[2018-10-17] MEDS: carBAMazepine 200 MG TAB PO SCH ×2 (08:08→20:54)
--- NOTE | 2018-10-17 12:25 | ASMTCMCOM ---
CM Note CM Note Notes: The patient continues to request discharge. She expressed financial and employment concerns. The patient, CC, and provider discussed possible plan to discharge on October 20 directly to P follow up. The patient remains, labile, distractable, and pressured. Date Signed: 10/17/2018 12:24 PM Electronically Signed By:Karely Mark
[2018-10-17] MEDS: QUEtiapine FUMARATE 200 MG TAB PO SCH (20:53)
[2018-10-18] MEDS: carBAMazepine 200 MG TAB PO SCH ×2 (08:58→20:00)
--- NOTE | 2018-10-18 15:35 | ASMTCMCOM ---
CM Note CM Note Notes: Pt. reports feeling "excellent". Pt. stated she fell asleep at 10pm and woke up at 5:45am. Pt. stated she slept "excellent". Pt. reports getting enough to eat, adding she is "gaining weight". Pt. reports no issues with her current medications. Pt. stated she is attending groups. Pt. reports she didn't wake up sweaty, adding she usually does. Pt. stated she wants to make sure she gets to see the MD today. Pt. request to "see a lieutenant firefighter Saturday", RN called [facility] sudha today. Pt. requested AG for tomorrow, as well. Pt. denied SI, HI, AVH and paranoia. Pt. present as alert, talkative, friendly, good eye contact, appears groomed, and cooperative. Staff report pt. sleeping 6 hours and being medication compliant. Pt. has an appointment with [facility] on 10/20/18 @ 3:45pm. Pt. will potentially be discharged and walked to her appointment on Saturday. Date Signed: 10/18/2018 03:34 PM Electronically Signed By:Paula Skelton
--- NOTE | 2018-10-18 17:06 | SOAPPROG ---
SOAP Progress Note Assessment/Plan: Assessment: Per Jabier Cummings's note: Bipolar I Disorder, Severe. Current Marlin, Cannabis Use Disorder, Severe. Alcohol Use Disorder, Severe. No improvement noted (see subjective/objective note). Patient is not safe to discharge at this time as patient continues to exhibit signs (decreased need for sleep, irritable, agitated, grandiose, pressured speech, hypertalkative, hyperactive, tangential) of marlin, and express marlin symptoms (severe anxiety, racing thoughts). Poor insight and judgement. Patient requires continued inpatient care because of current mood instability, and requires inpatient level of care to stabilize in order to no longer be gravely disabled due to mental illness. Due to current marlin, patient is unable to independently and appropriately attend to ADLs and communicate her basic needs appropriately. Patient exhibits persistent inability to perform essential function due to psychotic condition. Patients support system has inability to manage functional impairment at lower level of care. Patient lives alone and family is concerned for her safety if released from the hospital at this time. Patient could benefit from continued inpatient hospitalization for crisis stabilization, safety, medication evaluation, and discharge planning. Plan: 1. Psychotropic medications: After reviewing options, risks, and benefits patient agrees to continue current medications. No medication changes at this time as more time is needed to determine ongoing tolerability and efficacy. Plan is to continue to observe patient for response and side effects from medications, and ongoing monitoring and evaluation. WEEKEND PLAN: 10/18/18 17:00 1. No significant improvement since MD saw patient last weekend. She is still acutely manic, with pressured speech, racing thoughts, intrusive behavior, impulsive, delusional, decreased need for sleep, increased goal-directed activity and elevated mood. 2. MD recommends switching patient to a first-line treatment for marlin, such as lithium and/or depakote, which are more effective than Tegretol. Patient is currently refusing both of these meds. MD tried to explain to patient that Tegretol has serious risks and SE's (and discussed what these are), and that if the medication isn't actually helping to treat her symptoms, then the risk is not worth it. Patient did not understand this rationale. MD encouraged her to discuss with her primary inpatient provider, Jabier Cummings, who is prescribing her Tegretol. She agreed. 3. Patient requested visit from hospital credit and loan collections supervisor on Saturday. 4. [facility] Subjective: Patient very pressured and intrusive. As soon as MD walked through door to unit , patient got up out of her chair and hurried over to MD and said, "I know you" in loud voice. Patient proceeded to talk rapidly without letting MD get a word in. Patient was extremely difficult to interrupt and redirect. Patient jumped from one train of thought to another and kept talking incessantly about many different topics. Her marlin seems unchanged from last weekend when MD saw her. She continues to have elevated mood and little insight into the nature or severity of her symptoms. She denies any SI/HI. Objective: Vital Signs Temp Pulse Resp BP Pulse Ox 36.6 C 98 14 127/77 H 99 10/17/18 06:00 10/18/18 06:00 10/18/18 06:00 10/18/18 06:00 10/18/18 06:00 MSE: Affect: Elevated Mood: "Great" TP: Loose, tangential TC: Denies any SI/HI , no paranoid delusions Insight/Judgment: Impaired - Time Spent With Patient Time Spent With Patient: 15" - Pending Discharge Pending Discharge Within 24 Hours: No Pending Discharge Within 48 Hours: No ICD10 Worksheet Patient Problems: Problems Problem Status Onset Alcohol use disorder, severe, dependence Acute Bipolar disorder with severe marlin Acute Cannabis use disorder, severe, dependence Acute Marijuana use Acute Noncompliance with medication regimen Acute
[2018-10-18] MEDS: QUEtiapine FUMARATE 200 MG TAB PO SCH (20:00)
[2018-10-19] MEDS: carBAMazepine 200 MG TAB PO SCH ×2 (08:13→21:03)
--- NOTE | 2018-10-19 15:32 | ASMTCMCOM ---
CM Note CM Note Notes: The patient is speaking much quieter due to having received a hearing aid. She remains hyperverbal; content is cheerful and motivated. The patient is anticipating discharge on Saturday, October 20 to her P follow up appointment. She reported a successful visit with her children yesterday including that the patient's daughter is "glad" that the patient stayed on the unit over the weekend. The patient continues to request accompanied grounds. Date Signed: 10/19/2018 10:39 AM Electronically Signed By:Karely Mark
--- NOTE | 2018-10-19 16:49 | SOAPPROG ---
SOAP Progress Note Assessment/Plan: Assessment: Per Jabier Cummings's note: Bipolar I Disorder, Severe. Current Marlin, Cannabis Use Disorder, Severe. Alcohol Use Disorder, Severe. No improvement noted (see subjective/objective note). Patient is not safe to discharge at this time as patient continues to exhibit signs (decreased need for sleep, irritable, agitated, grandiose, pressured speech, hypertalkative, hyperactive, tangential) of marlin, and express marlin symptoms (severe anxiety, racing thoughts). Poor insight and judgement. Patient requires continued inpatient care because of current mood instability, and requires inpatient level of care to stabilize in order to no longer be gravely disabled due to mental illness. Due to current marlin, patient is unable to independently and appropriately attend to ADLs and communicate her basic needs appropriately. Patient exhibits persistent inability to perform essential function due to psychotic condition. Patients support system has inability to manage functional impairment at lower level of care. Patient lives alone and family is concerned for her safety if released from the hospital at this time. Patient could benefit from continued inpatient hospitalization for crisis stabilization, safety, medication evaluation, and discharge planning. Plan: 1. Psychotropic medications: After reviewing options, risks, and benefits patient agrees to continue current medications. No medication changes at this time as more time is needed to determine ongoing tolerability and efficacy. Plan is to continue to observe patient for response and side effects from medications, and ongoing monitoring and evaluation. WEEKEND PLAN: 10/18/18 17:00 1. No significant improvement since MD saw patient last weekend. She is still acutely manic, with pressured speech, racing thoughts, intrusive behavior, impulsive, delusional, decreased need for sleep, increased goal-directed activity and elevated mood. 2. MD recommends switching patient to a first-line treatment for marlin, such as lithium and/or depakote, which are more effective than Tegretol. Patient is currently refusing both of these meds. MD tried to explain to patient that Tegretol has serious risks and SE's (and discussed what these are), and that if the medication isn't actually helping to treat her symptoms, then the risk is not worth it. Patient did not understand this rationale. MD encouraged her to discuss with her primary inpatient provider, Jabier Cummings, who is prescribing her Tegretol. She agreed. 3. Patient requested visit from hospital medical payment poster on Saturday. 4. [facility] 10/19/18 16:45 1. Patient had "good" visit with medical payment poster. 2. Patient believes she is discharging on Saturday. 3. Patient is stable, but no significant improvement in her condition since admission. 4. [facility] Subjective: Patient is wearing an extra-large black [employer] sweatshirt and [employer] baseball cap. She presents with elevated mood, pressured speech, racing thoughts , intrusive behavior, but has been redirectable most of the day. She continues to ask MD repeatedly if she can go outside for a "breath of fresh air." She wants to walk around the neighborhood for "about an hour." When told MD did not think she was ready for AG privileges, patient said, "well that's OK, I'm leaving tomorrow anyway." Objective: Vital Signs Temp Pulse Resp BP Pulse Ox 36.9 C 84 16 126/66 H 97 10/19/18 06:00 10/19/18 06:00 10/19/18 06:00 10/19/18 06:00 10/19/18 06:00 MSE: Affect: Elevated Mood: "Great" TP: Tangential, loose, FOI TC: Denies any SI/HI, no paranoia Insight/Judgment: Poor a/e/b patient reportedly exchanged contact information with former patient who 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
[2018-10-19] MEDS: QUEtiapine FUMARATE 200 MG TAB PO SCH (21:04)
[2018-10-20 06:29] VITALS: BP 142/60
[2018-10-20] MEDS: carBAMazepine 200 MG TAB PO SCH (08:05)
--- NOTE | 2018-10-20 10:52 | BDS ---
[f rep st] BEHAVIORAL HEALTH DISCHARGE SUMMARY REASON FOR ADMISSION: From the ED note dated 10/11/2018, patient accompanied by family, presented to the emergency department with concerns of a samira episode for the past several weeks. Patient has a history of bipolar disorder and reportedly non adherent to Seroquel and carbamazepine prescriptions. Family reported the patient delusional and presenting with samira. Patient was admitted involuntarily and on an M1 hold due to being gravely disabled due to an underlying illness and medication non adherence. Patient was admitted for safety, crisis stabilization, and medication management. ADMITTING DIAGNOSES: 1. Bipolar disorder with severe samira. 2. Cannabis use disorder, severe. 3. Alcohol use disorder, severe. 4. Noncompliance with medication regimen. ADMISSION PHYSICAL EXAM: Patient was seen on 10/11/2018 for history and physical consultation for medical clearance for inpatient psychiatric hospitalization and treatment. Patient was medically cleared for inpatient psychiatric hospitalization and treatment. For further details, please refer to [employer] consultant note document dated 10/11/2018. ADMISSION LABS: 1. CBC within normal limits except white blood cells were elevated at 10.42 and absolute neutrophils were elevated at 6.64. 2. BMP within normal limits except glucose is elevated at 102. 3. Hemoglobin A1c within normal limits at 5.5. 4. Liver function within normal limits except AST elevated at 60 and ALT elevated at 67. 5. Lipid panel within normal limits. 6. TSH elevated at 5.750. 7. Toxicology screen nonnegative for marijuana, negative for all other substances screened. Negative for ethyl alcohol. 8. Carbamazepine level 6.40 at current dose of carbamazepine 200 mg p.o. twice daily. MAJOR PROCEDURES OR TESTS: None. HOSPITAL COURSE: The most prominent symptoms and behaviors while the patient was here were samira signs and symptoms. Patient presented irritable, agitated, intrusive, hyperactive, pressured speech, hyper talkative, decreased need for sleep. Treatment modalities utilized were milieu and group therapy. Seroquel was started and titrated to 400 mg p.o. at bedtime to target mood symptoms, was tolerated with no report of side effects and with good response. Tegretol 200 mg p.o. twice daily was continued to target mood symptoms, was tolerated with no report of side effects and with good response. Patient has improved considerably with no signs of psychiatric symptoms and no psychiatric symptoms expressed. Patient reports she has improved since admission, states to be in stable condition, feels safe to discharge, and she contracts for safety. Patients response to treatment was good. There were no adverse or unexpected results of treatment. The patient was safe throughout stay, active in treatment , engaged in groups, and was appropriate with staff. Patient met with treatment team prior to discharge to assess readiness to discharge and review discharge plan. The treatment team consensus is the patient in stable condition , has a safe discharge plan, and is ready to discharge today. CONDITION AT DISCHARGE: Patient is in stable condition and is no longer a danger to self or others, and is not gravely disabled due to mental illness. Patient is no longer in need of inpatient level of care, and can be safely and effectively treated within the community. The patients level of risk at time of discharge is low. MSE: The patient is casually dressed and with good hygiene , and looks stated age. Patient is sitting, posture is upright, and position is relaxed. Patient appears awake, alert, and responds appropriately and reasonably during interview. Patient is engaged, relates well to interviewer, and emotional facial expression is appropriate to situation and changes appropriately with topic. Patient is cooperative, makes comfortable eye contact , and movements are voluntary, deliberate, coordinated, and smooth and even with no inappropriate movements. Patient makes laryngeal sounds effortlessly and shares conversation appropriately; pace of conversation is appropriate, and stream of talking is fluent; articulation is clear and understandable; word choice is effortless and appropriate for education level; completes sentences, occasionally pausing to think; rate and volume are appropriate for interview and setting. Patient reports mood as euthymic. Patients affect is stable with full variable range, congruent with mood, and appropriate to speech and circumstances. Patient has linear and logical thinking, with no loose associations, tangential thought, thought blocking, concrete thinking, or any other signs of formal thought disorder. Patient denies suicidal and homicidal ideation, and denies hallucinations and delusions. Patient appears to be a reliable historian with sound judgement and good insight into current condition. Patient has no apparent dysfunction in recent or remote memory noted , and no evidence of gross cognitive dysfunction noted at any point during the interview. DISCHARGE DIAGNOSES: 1. Bipolar disorder with severe samira. 2. Cannabis use disorder, severe. 3. Alcohol use disorder, severe. CURRENT MEDICATIONS: After reviewing options, risks and benefits with the patient, patient agrees to continue: 1. Seroquel 400 mg p.o. at bedtime. 2. Carbamazepine 200 mg p.o. twice daily. Patient requests prescriptions for these medications at time of discharge. Prescriptions for 30 days for each medication are provided. Prescriptions are reviewed with the patient at time of discharge to ensure accuracy and patient understanding. DISPOSITION: Patient left hospital independently and voluntarily with her son- in-law. Son-in-law plans to attend the patient's outpatient followup appointment at [facility] this afternoon with patient and then patient plans to return to her apartment. FOLLOWUP: nursing coordinator reports the appropriate outpatient follow-up services have been established and outpatient appointments have been scheduled. The patient received written instructions with times and dates of outpatient follow-up appointments. The following follow-up recommendations were provided to the patient at discharge: Continue psychotropic medications as prescribed and attend appointments as scheduled. Report any side effects to a psychiatric outpatient provider, a primary care provider, or other health manager intensive care unit. Address any questions or problems concerning the psychotropic medications with a psychiatric outpatient provider, a primary care provider, or other health manager intensive care unit. Contact [facility] or [facility], or go to the nearest emergency room, if you are ever a danger to yourself/others, or unable to care for yourself. As soon as possible, establish a routine medication management treatment with a psychiatric provider, establish routine therapy appointments, and follow-up with a primary care provider. SUBSTANCE ABUSE BRIEF INTERVENTION: Brief intervention regarding the risks of alcohol and cannabis abuse is provided to patient with goal to reduce the risk of harm that could result from the continued use of alcohol and cannabis, with the general aim to investigate the problem, raise awareness of problem, develop a solution with the patient, recommend a specific change or activity, and motivate the patient toward change. Assess substance abuse behavior and give supportive advice about harm reduction, recommend a reduction in hazardous/at- risk consumption patterns, and facilitate referrals for additional specialized treatment with home visit field care manager. Intermediate goal is for the patient to quit and attend outpatient substance abuse treatment. Intervention focus on intermediate goals to allow for more immediate success in the treatment process to keep the patient motivated. Review following with patient: Cannabis use risks: Short-term use: impaired short-term memory, impaired motor coordination, altered judgement, in high doses paranoia and psychosis. Long-term use addiction, diminished life satisfaction and achievement, symptoms of chronic bronchitis, and increased risk of chronic psychosis disorders if predisposition to such disorders. In withdrawal anger, aggression irritability, anxiety and nervousness, decreased appetite or weight loss, restlessness, and sleep difficulties with strange dreams. Alcohol/Binge Drinking risks: short-term: injuries, violence, alcohol poisoning, risky sexual behaviors. Long-term: high blood pressure, stroke, liver disease, digestive problems, cancer, learning and memory problems, depression and anxiety, social problems, and alcohol dependence. OUTPATIENT SUBSTANCE ABUSE TREATMENT: Patient referred to outpatient provider and treatment for continued treatment related to substance abuse. LEGAL COURSE: Patient was admitted on an M1 hold for involuntary inpatient psychiatric hospitalization and treatment. Patient was then placed on a short- term certification. Patient discharged today independently and voluntarily, and short-term certification was terminated at time of discharge ATTITUDE AT TIME OF DISCHARGE: The patients attitude was positive at time of discharge, and patient reports looking forward to discharging today. The patient reports she feels safe to discharge, is no longer a danger to herself or others, is in stable condition, and contracts for safety. Patient states she will continue medications as prescribed, and establish medication management treatment with an outpatient provider after discharge. Patient reports she understands the information that has been provided to her, and she understands, accepts, and agrees to psychotropic medications. Patient describes internal protective factors as the coping skills she has learned while hospitalized here, and she plans to continue to practice these coping skills after discharge. LABS AND STUDIES: There were no pending labs or studies at time of discharge. ADVANCE DIRECTIVES: There were no advance directives on file, and patient was full code during this hospitalization. The following psychotropic medication treatment informed consent and recommendations were provided to the patient at time of discharge. Patient reports she understands, accepts, and agrees to the information that has been provided. PSYCHOTROPIC MEDICATION TREATMENT INFORMED CONSENT and RECOMMENDATIONS: Review nature of condition, diagnosis, and prognosis. Review nature and purpose of psychotropic medication treatment. Review type of psychotropic medications being prescribed. Review risk and benefits of psychotropic medication treatment. Review probable length of time will need to take medications. Review risk and benefits of not undergoing psychotropic medication treatment. Review alternative treatments to psychotropic medications. Review psychotropic medications contraindications, side effects, and importance of reporting any side effects to a psychiatric provider, primary care provider, or other health manager intensive care unit. Review importance of her asking a psychiatric provider or primary care provider any questions or problems concerning the psychotropic medications. Review importance of reporting to a psychiatric provider, primary care provider, or other health manager intensive care unit if she plans to or becomes . Review safety plan and the importance to contact [facility] or [facility] , or go to the nearest emergency room, if ever a danger to yourself/others, or unable to care for yourself. Recommend upon discharge to establish routine medication management treatment with a psychiatric provider, establish routine therapy appointments, and follow-up with a primary care provider. Verify patient understands, accepts, and agrees to the information that has been provided. /[id number]/MODL MTDD
--- NOTE | 2018-10-20 11:28 | ASMTBHDC ---
Notes Note: Notes: CC was able to confirm all necessary follow up ; Follow up with: [facility] [address] [place], [address] O# [phone] Next Apt: October 20 (10/20/18) @ 3:45pm, with Dr. Yo.* Follow-up: This is for the initial 30 minute appt to do paperwork and Ct should bring ID, insurance card, etc. [place] ([facility]): [address] [place] [address], [place] [address] Mon, Wed, and Fri 8:30am-2pm. [place] office: [address] [facility] [address] [facility] [address], [place] [address] Mon. and Wed., 9 am-2 pm [place] office: [address] [place] [address], [address] [facility] (adults), [place] [address] Mon-Fri., 9 am-2 pm Follow-up: [facility] [address] [place] [address] (or) [phone] [facility] (Primary Care) To make an appointment or contact a member of your Care Team call #[phone]. To find more information about [facility] Primary Care Providers, visit [email or web address] Date Signed: 10/20/2018 10:34 AM Electronically Signed By:Deepak Santo
--- NOTE | 2018-10-20 14:45 | ASMTBHDC ---
Notes Note: Notes: CC confirmed final apts with [facility] for client's follow up: Follow up with: [facility] [address] [place], [address] O# [phone] Next Appt: SaturdayOctober 29 (10/29/18) at 9:15am with Dr. Yo (at the above address). [facility] (Primary Care) To make an appointment or contact a member of your Care Team call #[phone]. To find more information about [facility] Primary Care Providers, visit [email or web address] Date Signed: 10/20/2018 01:14 PM Electronically Signed By:Deepak Santo
== END 2018-10-20 14:45 | disposition home or self-care (01) | DRG 885 ==
LOC: BBEH 16:40 → OBSVTOIN 17:35
PROVIDERS: ADMIT Psychiatry & Neurology Psychiatry; ATTEND Psychiatry & Neurology Psychiatry
DX: F31.2 Bipolar disorder, current episode manic severe with psychotic features (principal); F12.959 Cannabis use, unspecified with psychotic disorder, unspecified; T43.596A Underdosing of other antipsychotics and neuroleptics, initial encounter; Z72.89 Other problems related to lifestyle
CPT/HCPCS: 80305; G0480; J2060

== ENCOUNTER 2018-12-19 00:21 | Inpatient (IN) | payer OTHER, MEDICAID | END 2018-12-30 11:49 | disposition home or self-care (01) | LOC: BBEH 12-22 11:07 ==